=== PATIENT | female | born 1980 | race Caucasian/White ===

== ENCOUNTER 2018-04-26 09:50 | Outpatient (CLI) | payer OTHER | END 2018-04-26 09:51 | disposition home or self-care (01) | LOC: C.USIC 09:50 | DX: D72.819 Decreased white blood cell count, unspecified (principal); N64.4 Mastodynia ==

== ENCOUNTER 2018-05-09 07:51 | Outpatient (CLI) | payer OTHER | END 2018-05-09 07:52 | disposition home or self-care (01) | LOC: C.CTH 07:51 | DX: D72.819 Decreased white blood cell count, unspecified (principal) ==